=== PATIENT | female | born 1990 ===

== ENCOUNTER 2022-04-07 08:31 | Outpatient (CLI) | payer OTHER | END 2022-04-07 10:23 | disposition home or self-care (01) | LOC: PRENATAL 08:31 | PROVIDERS: ATTEND Obstetrics & Gynecology Maternal & Fetal Medicine | DX: O35.0XX0 Maternal care for (suspected) central nervous system malformation in fetus, not applicable or unspecified (principal); O35.3XX0 Maternal care for (suspected) damage to fetus from viral disease in mother, not applicable or unspecified; Z3A.21 21 weeks gestation of pregnancy ==

== ENCOUNTER 2022-05-18 08:56 | Outpatient (CLI) | payer OTHER | END 2022-05-18 10:25 | disposition home or self-care (01) | LOC: PRENATAL 08:56 | DX: O26.849 Uterine size-date discrepancy, unspecified trimester (principal); O35.0XX0 Maternal care for (suspected) central nervous system malformation in fetus, not applicable or unspecified; Z3A.27 27 weeks gestation of pregnancy ==